=== PATIENT | female | born 1950 | race Two or more races ===

== ENCOUNTER 2019-04-10 05:24 | Inpatient (IN) | payer MEDICARE, OTHER ==
[~2019-04-10] VITALS: Ht 149.9 cm; Wt 52.6 kg
--- NOTE | 2019-04-10 07:30 | NUR ---
MS/RN NOTES RECEIVED PATIENT FROM [facility] VIA [facility]. PATIENT WAS ABLE TO AMBULATE AND TRANSFER SELF FORM RNEY TO BED. SKIN ASSESSMENT DONE. SKIN IS INTACT. NOTED WITH IV ACCESS ON R WRIST. INTACT AND PATENT. FLUSHING WELL. NO S/S OF INFECTION OR INFILTRATION. DAUGHTER AT BEDSIDE. ALL NEEDS ANTICIPATED. CALL LIGHT WITHIN REACHED. BED LOCKED AND IN LOWEST POSITION. SAFETY MAINTAINED. PLAN OF CARE DISCUSSED. WILL CONTINUE TO MONITOR CLOSELY.
--- NOTE | 2019-04-10 07:44 | NUR ---
MS/RN NOTES CALLED [facility] TO REACH DR. IRAHETA FOR ADMITTING ORDERS BUT NO ONE WAS ANSWERING. WILL TRY AGAIN.
[2019-04-10 08:00] VITALS: BP 136/58
--- NOTE | 2019-04-10 09:30 | NUR ---
MS/RN NOTES AWAITING FOR DR. MCCORMACK ADMITTING ORDERS.
[2019-04-10] MEDS ORDERED: [UNRECOGNIZED DRUG - OTHER] PO (09:35)
[2019-04-10] MEDS ORDERED: OSEL75CA PO (09:35)
[2019-04-10] MEDS ORDERED: [UNRECOGNIZED DRUG - OTHER] PO (09:35)
[2019-04-10] MEDS ORDERED: ASPI-1169 PO (09:35)
[2019-04-10] MEDS ORDERED: LISI-603 PO (09:35)
[2019-04-10] MEDS ORDERED: [UNRECOGNIZED DRUG - OTHER] (09:35)
[2019-04-10] MEDS ORDERED: FLUT1BLS IH (09:38)
[2019-04-10] MEDS ORDERED: IPRATROPIUM NEB FS 0.5 MG/2.5 ML AMPUL.NEB NEB PRN (11:30)
[2019-04-10] MEDS ORDERED: Z GUARD REMEDY 2 OZ OINT TP PRN (11:30)
[2019-04-10] MEDS ORDERED: ALBUTEROL FS 2.5 MG/0.5 ML VIAL.NEB NEB PRN (11:30)
[2019-04-10] MEDS ORDERED: HYDROCODONE/APAP 5/325MG 1 EACH TABLET PO PRN (11:30)
[2019-04-10] MEDS ORDERED: ACETAMINOPHEN 325 MG TABLET PO PRN (11:30)
[2019-04-10] MEDS ORDERED: ONDANSETRON HCL/PF 4 MG/2 ML VIAL IVP PRN (11:30)
[2019-04-10] MEDS ORDERED: MAGNESIUM HYDROXIDE 30 ML UDC PO PRN (11:30)
[2019-04-10] MEDS ORDERED: ZOLPIDEM TARTRATE 5 MG TABLET PO PRN (11:30)
[2019-04-10] MEDS ORDERED: MAG HYDROX/AL HYDROX/SIMETH 30 ML UDC PO PRN (11:30)
[2019-04-10] MEDS: IV NS 0.9% 1,000 ML IV PRN (11:31)
[2019-04-10] MEDS: OSELTAMIVIR PHOSPHATE 75 MG CAPSULE PO SCH ×2 (12:04→21:27)
[2019-04-10] MEDS: ENOXAPARIN SODIUM 40 MG/0.4 ML DISP.SYRIN SQ SCH (12:05)
[2019-04-10] MEDS: CEFTRIAXONE 1 G in IV D5W 50 ML IV SCH (13:45)
[2019-04-10 13:59] LABS: CREATININE 0.9 mg/dL (0.6-1.3); POTASSIUM 4.1 mmol/L (3.5-5.1)
[2019-04-10] MEDS ORDERED: CT SWABBABLE VALVE TRANS SET 1 EA INFUS.SET MC ONE (14:26)
[2019-04-10] MEDS ORDERED: IOHEXOL-300 100 ML VIAL IV ONE (14:26)
[2019-04-10] MEDS ORDERED: IV NS 0.9% 250 ML IV ONE (14:26)
[2019-04-10] MEDS: AZITHROMYCIN 500 MG in IV D5W 250 ML IV SCH (14:28)
--- NOTE | 2019-04-10 15:40 | NUR ---
MS/RN NOTES PATIENT CAME BACK FROM CT CHEST. PATIENT WAS ABLE TO TOLERATED THE PROCEDURE WELL. WILL CONTINUE TO MONITOR CLOSELY.
[2019-04-10 16:00] VITALS: BP 127/59
[2019-04-10 16:19] LABS: BASOPHILS # (AUTO) 0.1 /CMM (0.0-0.2); BASOPHILS % (AUTO) 0.5 % (0.0-2.0); EOSINOPHILS % (AUTO) 1.6 % (0.0-6.0); HEMATOCRIT 35 % (33-45); HEMOGLOBIN 11.5 g/dL (11.5-14.8); LYMPHOCYTES # (AUTO) 1.3 /CMM (0.8-4.8); LYMPHOCYTES % (AUTO) 13.5 % (20.0-44.0); MEAN CORPUSCULAR HGB CONC 33 g/dl (31.0-36.0); MEAN CORPUSCULAR VOLUME 88 fL (82-100); MONOCYTES # (AUTO) 0.8 /CMM (0.1-1.30); MONOCYTES % (AUTO) 8.4 % (2.0-12.0); NEUTROPHILS # (AUTO) 7.5 /CMM (1.8-8.9); PLATELET COUNT (AUTO) 293 /CMM (150-450); RED BLOOD CELL COUNT(AUTO) 3.98 MIL/uL (4.0-5.2); WHITE BLOOD COUNT (AUTO) 9.8 K/uL (4.3-11.0)
--- NOTE | 2019-04-10 18:59 | NUR ---
MS/RN NOTES CONSENT WAS SIGNED AND PLACED IN THE CHART FOR THE CT GUIDED BIOPSY OF THE RIGHT LUNG MASS. EXPLAINED TO THE PATIENT AND TO BE NPO BY MIDNIGHT. WILL CONTINUE TO MONITOR CLOSELY.
--- NOTE | 2019-04-10 19:30 | NUR ---
MS RN OPENING NOTES RECEIVED PATIENT RESTING IN BED, FAMILY AT BEDSIDE. PATIENT IN STABLE CONDITION NO DISTRESS NOTED AT THIS TIME. PATIENT IS A/O X4, VITAL SIGNS WITHIN NORMAL LIMITS. NO COMPLAINTS OF PAIN AT THIS TIME. PATIENT IS AMBULATORY, ABLE TO WALK TO THE RESTROOM. IV ON RIGHT WRIST, #20 INTACT, PATENT, AND FLUSHED WELL. NO S/S OF INFECTION NOTED. SCHEDULED FOR CT WITH GUIDED BIOPSY TOMORROW MORNING. WILL ENDORSE TO MORNING SHIFT TO HOLD LOVENOX. SAFETY MAINTAINED, CALL LIGHT WITHIN REACH, WILL CONTINUE TO MONITOR.
--- NOTE | 2019-04-10 19:43 | NUR ---
MS/RN CLOSING NOTES PATIENT CONTINUES TO REMAIN IN STABLE CONDITION THROUGHOUT THE SHIFT. PROVIDED COMFORT AND SAFETY. NO PAIN OR ACUTE DISTRESS AT THIS TIME. RESPIRATION EVEN AND UNLABORED. SKIN IS DRY WARM TO TOUCH. PATIENT WAS ABLE TO TOLERATE MEALS AND MEDS WELL. IV ACCESS INTACT AND PATENT. FLUSHING WELL. NO S/S OF INFECTION OR INFILTRATION. DAUGHTER AT BEDSIDE. ALL NEEDS ANTICIPATED. CALL LIGHT WITHIN REACHED. BED LOCKED AND IN LOWEST POSITION. SAFETY MAINTAINED. ENDORSED TO PM NURSE FOR ERWIN.
[2019-04-10 20:00] VITALS: BP 137/83
[2019-04-11] MEDS: IV NS 0.9% 1,000 ML IV PRN ×2 (01:36→23:35)
[2019-04-11 04:00] VITALS: BP 127/71
[2019-04-11 06:57] LABS: BASOPHILS % (AUTO) 0.5 % (0.0-2.0); EOSINOPHILS % (AUTO) 3.9 % (0.0-6.0); HEMATOCRIT 35 % (33-45); HEMOGLOBIN 11.5 g/dL (11.5-14.8); LYMPHOCYTES # (AUTO) 1.4 /CMM (0.8-4.8); LYMPHOCYTES % (AUTO) 16.3 % (20.0-44.0); MEAN CORPUSCULAR HGB CONC 33 g/dl (31.0-36.0); MEAN CORPUSCULAR VOLUME 88 fL (82-100); MONOCYTES # (AUTO) 0.6 /CMM (0.1-1.30); MONOCYTES % (AUTO) 6.9 % (2.0-12.0); NEUTROPHILS # (AUTO) 6.2 /CMM (1.8-8.9); NEUTROPHILS % (AUTO) 72.4 % (43.0-81.0); PLATELET COUNT (AUTO) 263 /CMM (150-450); RED BLOOD CELL COUNT(AUTO) 3.94 MIL/uL (4.0-5.2); WHITE BLOOD COUNT (AUTO) 8.6 K/uL (4.3-11.0)
[2019-04-11 07:23] LABS: CALCIUM, SERUM 8.9 mg/dL (8.5-10.1); CREATININE 0.8 mg/dL (0.6-1.3); MAGNESIUM 1.9 mg/dL (1.8-2.4); PHOSPHORUS 2.9 mg/dL (2.5-4.9); POTASSIUM 3.8 mmol/L (3.5-5.1)
[2019-04-11 07:33] LABS: THYROID STIMULATING HORMONE 2.207 uIU/mL (0.358-3.74)
--- NOTE | 2019-04-11 07:44 | NUR ---
RN CLOSING NOTES NO ACUTE CHANGES TO PATIENT CONDITION DURING MY SHIFT. PATIENT IS IN STABLE CONDITION. NO SIGNS OF RESPIRATORY DISTRESS NOTED AT THIS TIME. SATURATING WELL ON ROOM AIR, O2SAT @ 96%. IV LINE REMAINED INTACT AND PATENT. FLUSHED WELL. RUNNING NS @ 75MLS/HR. ALL PATIENT NEEDS MET, RESTING COMFORTABLY IN BED. DAUGHTER REMAINED AT BEDSIDE ALL NIGHT. SAFETY MAINTAINED, CALL LIGHT WITHIN REACH, ENDORSED TO BRAID FOLDER NURSE TO CONTINUE CARE.
[2019-04-11 08:00] VITALS: BP 137/75
[2019-04-11] MEDS: ENOXAPARIN SODIUM 40 MG/0.4 ML DISP.SYRIN SQ SCH (08:40)
[2019-04-11] MEDS: OSELTAMIVIR PHOSPHATE 75 MG CAPSULE PO SCH ×2 (09:47→21:00)
[2019-04-11] MEDS: PANTOPRAZOLE 40 MG TABLET.DR PO SCH (09:48)
[2019-04-11] MEDS: ASPIRIN 81 MG TAB.CHEW PO SCH (09:48)
[2019-04-11] MEDS: CEFTRIAXONE 1 G in IV D5W 50 ML IV SCH (13:08)
[2019-04-11] MEDS: AZITHROMYCIN 500 MG in IV D5W 250 ML IV SCH (13:57)
[2019-04-11 16:00] VITALS: BP 144/72
--- NOTE | 2019-04-11 19:30 | NUR ---
RN OPEN NOTES RECEIVED PATIENT AWAKE SITTING IN BED WITH FAMILY AT BEDSIDE. A/OX4. NO SIGNS OF DISTRESS OR DISCOMFORT. BREATHING EVEN AND UNLABORED. IV ACCESS IN R WRIST, PATENT AND INTACT, NO SIGNS OF REDNESS OR INFILTRATION. BED IN LOW LOCKED POSITION WITH SIDE RAILS X2. CALL LIGHT WITHIN REACH. WILL CONTINUE TO MONITOR.
[2019-04-11 20:00] VITALS: BP 139/69
[2019-04-12] MEDS ORDERED: KETOROLAC TROMETHAMINE INJ 30 MG/ML VIAL IV ONE (03:30)
--- NOTE | 2019-04-12 03:31 | NUR ---
RN NOTES ADMINISTERED TORADOL 15MG IV ORDERED FOR LEFT BREAST APIN 09/27 AT PATIENT REQUEST. VSS. WILL CONTINUE TO MONITOR.
[2019-04-12 04:00] VITALS: BP 129/74
--- NOTE | 2019-04-12 06:26 | NUR ---
RN CLOSING NOTES PATIENT RESTING COMFORTABLY IN BED WITH FAMILY AT BEDSIDE. A/OX4. NO SIGNS OF DISTRESS OR DISCOMFORT. BREATHING EVEN AND UNLABORED. IV ACCESS IN LFA WITH NS INFUSING, PATENT AND INTACT, NO SIGNS OF REDNESS OR INFILTRATION. ALL NEEDS MET. NO SIGNIFICANT CHANGES THROUGH THE NIGHT. BED IN LOW LOCKED POSITION WITH SIDE RAILS X2. CALL LIGHT WITHIN REACH. WILL ENDORSE TO AM SHIFT FOR ERWIN.
[2019-04-12 08:00] VITALS: BP 146/67
--- NOTE | 2019-04-12 08:21 | NUR ---
RN NOTES PER DR ESTRADA IT IS OK TO GIVE MORNING MEDS, OK TO TAKE A SHOWER BEFORE BIOPSY.
[2019-04-12] MEDS: ASPIRIN 81 MG TAB.CHEW PO SCH (09:00)
[2019-04-12] MEDS: ENOXAPARIN SODIUM 40 MG/0.4 ML DISP.SYRIN SQ SCH (09:00)
[2019-04-12] MEDS: OSELTAMIVIR PHOSPHATE 75 MG CAPSULE PO SCH ×2 (10:24→20:26)
[2019-04-12] MEDS: PANTOPRAZOLE 40 MG TABLET.DR PO SCH (10:24)
--- NOTE | 2019-04-12 10:24 | NUR ---
MS RN NOTES LOVENOX AND ASPIRIN NOT ADMINISTRATED DUE TO BIOPSY SCHEDULED TODAY.
[2019-04-12 12:00] VITALS: BP 146/67
[2019-04-12] MEDS: CEFTRIAXONE 1 G in IV D5W 50 ML IV SCH (12:43)
--- NOTE | 2019-04-12 13:40 | NUR ---
MS RN NOTES PATIENT IS TRANSFERRED TO FOR SCHEDULED BIOPSY.
[2019-04-12] MEDS ORDERED: NALOXONE PREFILLED SYRINGE 2 MG/2 ML SYRINGE IV ONE (14:00)
[2019-04-12] MEDS ORDERED: MIDAZOLAM HCL 5MG/ML VIAL 25 MG/5 ML VIAL IV ONE (14:00)
[2019-04-12] MEDS ORDERED: FENTANYL PF 250MCG/5ML AMPUL IV ONE (14:00)
[2019-04-12] MEDS: AZITHROMYCIN 500 MG in IV D5W 250 ML IV SCH (15:48)
--- NOTE | 2019-04-12 15:48 | NUR ---
RN NOTES PATIENT IS BACK FROM CT AND BIOPSY.
[2019-04-12 16:00] VITALS: BP 155/78
--- NOTE | 2019-04-12 20:20 | NUR ---
RN NOTE: CXR RESULT SENT TO DR. ESTRADA. LUNG BIOPSY AND FLUID RESULTS STILL PENDING. DR. ESTRADA AWARE. PER , OK TO PROCEED WITH DC.
--- NOTE | 2019-04-12 20:57 | NUR ---
MS RN NOTES PATIENT IS IN STABLE CONDITION TO BE DISCHARGED. PER DR ESTRADA IT IS OK TO DISCHARGE PATIENT. IV , ID BAND REMOVED, BELONGINGS RETURNED TO THE PATIENT, EDUCATION PROVIDED. DAUGHTER AT BED SIDE. PATIENT WILL BE TRANSFERRED TO THE [facility] BY [facility] ASSISTANT AND WHEELCHAIR SAFELY. Addendum: 04/12/19 at 2102 by JASON HUNTER RN SKIN INTACT NO PICTURES TAKEN.
== END 2019-04-12 20:57 | disposition home or self-care (01) | DRG 181 ==
LOC: MEDSG1 06:40
PROC: 0BBD3ZX Excision of Right Middle Lung Lobe, Percutaneous Approach, Diagnostic (ICD-10-PCS; principal; 2019-04-12)
PROC: 0W993ZZ Drainage of Right Pleural Cavity, Percutaneous Approach (ICD-10-PCS; 2019-04-12)
DX: C34.90 Malignant neoplasm of unspecified part of unspecified bronchus or lung (principal); J91.0 Malignant pleural effusion; I10 Essential (primary) hypertension
CPT/HCPCS: 36415; 71045-TC; 71270-TC; 76942-TC; 77012-TC; 80048-TC; 80061-TC; 83735-TC; 84100-TC; 84443-TC; 85025-TC; 85730-TC; 87102-TC; 87116; 87206; 88305-TC; 88342; 89051-TC; G0378; J0456; J0696; J1650; J1885; J2250; J2310; J3010; J7030; J7050; J7060; Q9967